=== PATIENT | female | born 1970 | race Asian ===

== ENCOUNTER 2017-02-13 13:45 | Emergency (ER) | payer OTHER, BC ==
[~2017-02-13] VITALS: Ht 144.8 cm; Wt 44.9 kg
[2017-02-13 18:59] VITALS: BP 120/58
== END 2017-02-13 18:59 | disposition home or self-care (01) ==
LOC: ED 13:45
DX: S83.91XA Sprain of unspecified site of right knee, initial encounter (principal); M25.551 Pain in right hip; I27.2 Other secondary pulmonary hypertension; W17.89XA Other fall from one level to another, initial encounter; Y93.89 Activity, other specified; Y92.89 Other specified places as the place of occurrence of the external cause; Y99.8 Other external cause status
CPT/HCPCS: J1885; J3010; Q0162